=== PATIENT | female | born 1960 | race Caucasian/White ===

== ENCOUNTER 2016-12-31 08:08 | Emergency (ER) | payer BC ==
[2016-12-31] MEDS ORDERED: SODIUM CHLORIDE 0.9% 1,000 ML ONE (09:22)
[2016-12-31 11:02] LABS: ABSOLUTE NEUTROPHIL COUNT 1.8 K/mm3 (1.8-7.7); EOS # 0.1 (0.0-0.5); EOS % 2.6 % (0.9-2.9); HEMATOCRIT 28.1 % (37.0-47.0); HEMOGLOBIN 9.4 gm/l (12.0-16.0); IMM NEUT% 1.7 % (0-1); LYMPH # 0.4 (1.0-4.8); LYMPH % 17.9 % (15-45); MEAN CELL VOLUME 88.6 fl (81.0-99.0); MEAN CORPUSCULAR HEMOGLOBIN 29.7 pg (27.0-31.0); MEAN CORPUSCULAR HGB CONC 33.5 g/dl (33.0-37.0); MEAN PLATELET VOLUME 11.1 fl (7.4-10.4); MONO % 0.4 % (4-12); NEUT % 77.4 % (43-75); PLATELET COUNT 144 K/mm3 (130-400); RED CELL DISTRIBUTION WIDTH 12.4 % (11.5-14.5)
[2016-12-31 11:11] LABS: ALB/GLOB RATIO 1.1 (>1.0); CALCIUM 8.1 mg/dL (8.6-10.3)
[2016-12-31 12:06] LABS: BAND 2 % (0-10); BASOPHIL 0 % (0-1); EOSINOPHIL 3 % (1-3); LYMPHOCYTE 25 % (15-45); MONOCYTE 1 % (4-12); NEUTROPHILS 69 % (43-75); TOTAL CELLS COUNTED 100
[2016-12-31 12:07] LABS: PLATELET ESTIMATE DECREASED (NORMAL)
--- NOTE | 2016-12-31 12:08 | US ---
DUPLEX SCAN VEIN EXT EVELIA COMPARISON: None. HISTORY: Rash and swelling in both calves. Technique: The veins of both lower extremities were interrogated with real-time grayscale ultrasound, color Doppler, and spectral Doppler. Vessel compressibility and flow augmentation were assessed. FINDINGS: Right lower extremity Deep venous thrombosis: None Common femoral vein: Normal Saphenous vein confluence: Normal Proximal femoral vein: Normal Mid and distal femoral vein: Normal Popliteal vein: Normal. Peroneal veins: Normal. Posterior tibial veins: Normal Soft tissues: Normal. FINDINGS: Left lower extremity Deep venous thrombosis: None Common femoral vein: Normal Saphenous vein confluence: Normal Proximal femoral vein: Normal Mid and distal femoral vein: Normal Popliteal vein: Normal Peroneal veins: Normal Posterior tibial veins: Normal Soft tissues: Normal IMPRESSION: There is no evidence of deep venous thrombosis in either lower extremity. [facility] 12/31/2016 at 12:09
[2016-12-31] MEDS ORDERED: CLINDAMYCIN HCL 150 MG CAPSULE ONE (13:01)
== END 2016-12-31 13:27 | disposition home or self-care (01) ==
LOC: ED 08:08
DX: L03.116 Cellulitis of left lower limb (principal); L03.115 Cellulitis of right lower limb; R73.03 Prediabetes; J45.909 Unspecified asthma, uncomplicated; C25.9 Malignant neoplasm of pancreas, unspecified
CPT/HCPCS: 83605; 85025; 87040; 80053; 99284; 96360; 93970; 99283; A9270; J7030